=== PATIENT | male | born 1970 | race Native Hawaiian/Other Pacific Islander ===

== ENCOUNTER 2016-11-30 10:21 | Emergency (ER) | payer OTHER ==
[~2016-11-30] VITALS: Ht 188 cm; Wt 127.0 kg
[~2016-11-30 10:21] MED LIST: AMLO5TAB PO; CYCL10TA35 PO; MILLIPRED DP5 MG OR; STRATTERA80 MG OR; VALS160T PO
[2016-11-30 10:30] VITALS: TEMP 98.7
[2016-11-30 10:49] LABS: PLATELET COUNT 204 K/uL (142-355)
[2016-11-30 10:57] LABS: POTASSIUM 4.1 mmol/L (3.6-5.2); SODIUM 136 mmol/L (136-145)
[2016-11-30 11:06] LABS: PARTIAL THROMBOPLASTIN TIME 24.6 SECONDS (24.5-33.6)
[2016-11-30 11:35] VITALS: BP 142/78
== END 2016-11-30 11:36 | disposition home or self-care (01) ==
LOC: ED 10:21
DX: I10 Essential (primary) hypertension (principal); K22.6 Gastro-esophageal laceration-hemorrhage syndrome
CPT/HCPCS: 36415; 80053; 85027; 85610; 85730; 86318; 99284

== ENCOUNTER 2016-12-07 10:50 | Observation (INO) | payer BC ==
[~2016-12-07] VITALS: Ht 188 cm; Wt 134.5 kg
[2016-12-07 00:08] VITALS: BP 145/93; TEMP 98.1
[2016-12-07 10:58] VITALS: BP 181/121; TEMP 98.1
[2016-12-07 11:10] LABS: PLATELET COUNT 175 K/uL (142-355)
[2016-12-07 11:13] VITALS: BP 156/104
[2016-12-07 11:16] LABS: POTASSIUM 4.6 mmol/L (3.6-5.2); SODIUM 136 mmol/L (136-145)
[2016-12-07 11:27] LABS: PARTIAL THROMBOPLASTIN TIME 24.9 SECONDS (24.5-33.6)
[2016-12-07 11:35] VITALS: BP 142/89
[2016-12-07 14:00] VITALS: BP 142/88; TEMP 98.8; Ht 188 cm; Wt 134.5 kg
[2016-12-07 20:16] VITALS: BP 158/95; TEMP 98.4
[2016-12-08 00:01] VITALS: BP 145/93; TEMP 97.5
[2016-12-08 03:32] LABS: PLATELET COUNT 164 K/uL (142-355)
[2016-12-08 03:40] LABS: POTASSIUM 3.7 mmol/L (3.6-5.2); SODIUM 134 mmol/L (136-145)
[2016-12-08 04:00] VITALS: BP 130/84; TEMP 97.6
[2016-12-08 08:28] VITALS: BP 150/77; TEMP 97.7
--- NOTE | 2016-12-08 11:49 | NUR ---
D/C INSTRUCTIONS GIVEN TO PT AND HE VERBALIZES UNDERSTANDING. PT HAS APPOINTMENT TO FOLLOW UP WITH DR. KING. PT REFUSES W/C AND IS AMBULATORY OUT WITH NAD AND AT .
== END 2016-12-08 11:55 | disposition home or self-care (01) ==
LOC: ED 10:50 → MED/SURG 12:50
DX: R07.89 Other chest pain (principal); R00.0 Tachycardia, unspecified; I10 Essential (primary) hypertension; Z86.73 Personal history of transient ischemic attack (TIA), and cerebral infarction without residual deficits
CPT/HCPCS: 36415; 80053; 82550; 82553; 83735; 84484; 85027; 85610; 85730; 93005; 96372; 96374; 96376; 99220; 99284; G0378; J1650; J2060; J2270; J2405

== ENCOUNTER 2017-08-22 14:42 | Emergency (ER) | payer BC ==
[~2017-08-22] VITALS: Ht 188 cm; Wt 122.5 kg
[2017-08-22 14:45] VITALS: TEMP 98.2
[2017-08-22] MEDS ORDERED: METO50TA27 PO (14:53)
[2017-08-22 16:41] LABS: PLATELET COUNT 189 K/uL (142-355)
[2017-08-22 16:45] LABS: POTASSIUM 3.8 mmol/L (3.6-5.2)
[2017-08-22 17:05] VITALS: BP 144/90
== END 2017-08-22 17:19 | disposition home or self-care (01) ==
LOC: ED 14:42
PROVIDERS: Emergency Medicine
DX: I10 Essential (primary) hypertension (principal)
CPT/HCPCS: 36415; 80053; 82550; 84484; 85027; 99283

== ENCOUNTER 2017-11-08 11:40 | Emergency (ER) | payer BC ==
[~2017-11-08] VITALS: Ht 188 cm; Wt 133.8 kg
[~2017-11-08 11:40] MED LIST changes: +METO50TA27 PO
[2017-11-08 13:01] LABS: POTASSIUM 3.9 mmol/L (3.6-5.2); SODIUM 138 mmol/L (136-145)
[2017-11-08 13:04] LABS: PLATELET COUNT 210 K/uL (142-355)
[2017-11-08 15:15] VITALS: BP 149/94; TEMP 98.2
== END 2017-11-08 15:15 | disposition home or self-care (01) ==
LOC: ED 11:40
DX: R07.89 Other chest pain (principal); K29.60 Other gastritis without bleeding
CPT/HCPCS: 80053; 81000; 82550; 82553; 84484; 85027; 86318; 93005; 99283

== ENCOUNTER 2018-01-10 15:49 | Emergency (ER) | payer BC ==
[~2018-01-10] VITALS: Ht 188 cm; Wt 133.8 kg
[2018-01-10 16:06] VITALS: TEMP 98.8
[2018-01-10 17:29] LABS: PLATELET COUNT 211 K/uL (142-355)
[2018-01-10 17:35] LABS: POTASSIUM 3.8 mmol/L (3.6-5.2)
[2018-01-10 19:07] VITALS: BP 142/84
== END 2018-01-10 19:10 | disposition home or self-care (01) ==
LOC: ED 15:49
PROVIDERS: Family Medicine
DX: R42 Dizziness and giddiness (principal); R51 Headache; I10 Essential (primary) hypertension
CPT/HCPCS: 36415; 80053; 85027; 85610; 85730; 96372; 99283; J1885

== ENCOUNTER 2020-03-25 14:31 | Outpatient (CLI) | payer OTHER ==
[~2020-03-25] VITALS: Ht 188 cm; Wt 139.7 kg
[2020-03-25 14:30] VITALS: BP 112/76; TEMP 98.4
[2020-03-25 15:31] LABS: PLATELET COUNT 138 K/uL (142-355)
[2020-03-25 15:39] LABS: POTASSIUM 5.2 mmol/L (3.6-5.2)
== END 2020-03-25 17:35 | disposition home or self-care (01) ==
LOC: INF 14:31
PROVIDERS: ATTEND Family Medicine
DX: U07.1 COVID-19 (principal); I10 Essential (primary) hypertension
CPT/HCPCS: 36591; 80053; 85027; 96365; Q0239

== ENCOUNTER 2020-12-15 11:58 | Outpatient (CLI) | payer OTHER ==
[2020-12-15 12:22] LABS: PLATELET COUNT 209 K/uL (142-355)
== END 2020-12-15 22:19 | disposition home or self-care (01) ==
LOC: CT 11:58
PROVIDERS: ATTEND Family Medicine
DX: R10.32 Left lower quadrant pain (principal); Z13.220 Encounter for screening for lipoid disorders; E55.9 Vitamin D deficiency, unspecified; E53.8 Deficiency of other specified B group vitamins; R53.83 Other fatigue
CPT/HCPCS: 36415; 80061; 82306; 82565; 82607; 84443; 84520; 85027; Q9963

== ENCOUNTER 2020-12-19 10:47 | Outpatient (CLI) | payer OTHER ==
[2020-12-19 11:33] LABS: POTASSIUM 8.5 mmol/L (3.6-5.2)
== END 2020-12-19 19:19 | disposition home or self-care (01) ==
LOC: LAB 10:47
PROVIDERS: ATTEND Family Medicine
DX: R10.32 Left lower quadrant pain (principal)
CPT/HCPCS: 80053